=== PATIENT | female | born 1945 | race Caucasian/White ===

== ENCOUNTER 2016-11-26 09:26 | Outpatient (CLI) | payer MEDICARE, OTHER ==
[~2016-11-26] VITALS: Ht 167.6 cm; Wt 103.8 kg
--- NOTE | ~2016-11-26 | CATH ---
Cardiac Diagnostic Report Demographics Patient Name BETZAIDA Ochoa Gender Female Date of 1945 Age 70 year(s) Patient Number [id number] Date of Study 11/26/2016 Visit Number [id number] Room Number G63[address] [place] [id number] Ht 167.64 cm Wt 103.8 kg Referring Oumou Melida Linton MD Primary Physician Physician Performing Markeluguntla Secondary Physician Physician Temit[facility]ES [facility] Physician Temitope HERNANDES Interventional Physician Dry Cleaning Counter Clerk Physician Findings and Conclusions Diagnostic Findings and Conclusion Mild CAD 1 vessel. Ostial and Mid 20 % of LAD. Mild mid to distal LAD bridging. Diagnostic Recommendations Medical treatment. Ranexa 500 mg BID. No BB or CCB due to resting sinus bradycardia. Event monitor upon discharge given recent fall and syncope. Patient has been instructed to not lift anything more than 5 pounds for 1 week. I would like to thank Dr. Coello for the opportunity to participate in the care of Mrs. Gill . Procedure Description The patient was brought to the diagnostic cardiac catheterization-EP laboratory in the fasting, non-sedated state. Informed consent was obtained in the written and verbal form after the risks and benefits were explained. The patient had no further questions and agreed to proceed. The planned puncture-incision site(s) were shaved and prepped with ChloraPrep and draped in the usual sterile manner. Conscious sedation, supplemental oxygen, and pain control medications were delivered by a registered nurse under physician guidance. Surface ECG rhythm, blood pressure measurement, and pulse oximetry were monitored throughout the procedure. Arterial access. The access site was infiltrated with lidocaine. The vessel was entered with the Seldinger technique. A sheath was advanced into the vessel and used for catheter placement. Selective left coronary angiography. A catheter was advanced into the left coronary vessel ostium under Fluoroscopic guidance. Contrast was injected by hand. Images were obtained in multiple projections. Selective right coronary angiography. A catheter was advanced into the right coronary vessel ostium under fluoroscopic guidance. Contrast was injected by hand. Images were obtained in multiple projections. Left heart catheterization. A catheter was advanced across the aortic valve to the left ventricle under fluoroscopic guidance. Resting hemodynamics were obtained. Arterial artery hemostasis was achieved. The patient was transferred to a regular nursing floor via cart accompanied by a nurse. The patient left the laboratory in stable condition. Diagnostic Cath Status: Elective Procedure Procedure Type Diagnostic procedure:Angiography:, Coronary Angios w/LHC Indications: Chest pain, Shortness of breath, Syncope and Palpitations. The procedure was explained in detail to the patient. Risks, complications and alternative treatments were reviewed. Written consent was obtained. Medications Reviewed with Patient prior to Procedure. Angiographic Findings Dominance: Left Cardiac Arteries and Lesion Findings LMCA: Normal (0% Stenosis). LAD: Diag normal. Lesion on Prox LAD: Ostial.20% stenosis . Lesion on Mid LAD: Mid subsection.20% stenosis . Comments:Mild mid LAD bridging. LCx: Normal (0% Stenosis).OM normal. RCA: Normal (0% Stenosis).Small nondominant. Coronary Tree Procedure Data Procedure Date Date: 11/26/2016Start: 01:26 PMEnd: 01:49 PM Entry Locations - Retrograde Percutaneous access was performed through the Right Radial artery (Primary location). A 6 Fr sheath was inserted. Hemostasis was successfully obtained using Mechanical Compression. Entry Comments: ultrasound guidance used to access right radial artery.. Closure Comments: 14 ml's in Radial band placed by Liza Starr. Procedure Medications Order and Administration + + + + + !Time !Medication !Dosage !Route ! + + + + + !11/26/2016 01:19 PM !Versed !1 mg !I.V. ! + + + + + !11/26/2016 01:20 PM !Fentanyl !50 mcg !I.V. ! + + + + + !11/26/2016 01:23 PM !Oxygen !2 l/min !NC ! + + + + + !11/26/2016 01:36 PM !Heparin (ACC_3) !5000 units !I.V. bolus ! + + + + + !11/26/2016 01:37 PM !Fentanyl !25 mcg !I.V. ! + + + + + !11/26/2016 01:45 PM !Oxygen ! !NC ! + + + + + Devices Used - A5 FrCynthia ALMEIDA JR 4 Diag. Catheterwas used for:Right coronary angiography. - A5 Fr. BS JR 4 Diag. Catheterwas used for:LV Pressures. - A5 Fr. BS JL 3.5 Diag. Catheterwas used for:Left coronary angiography. Contrast Material - Isovue 89239 ml Fluoroscopy Time: Diagnostic: 3:48 minutes. Total: 3:48 minutes. Fluoroscopy Dose: Diagnostic: 547 mGy. Total: 547 mGy. Estimated Blood Loss: 10 ml. Medical History Performed Procedures and Imaging Results - No ACC stress or imaging studies were performed. History of Disease + + + + !Diagnosis !Date !Comments ! + + + + !Hypertension ! ! ! + + + + !Diabetes ! ! ! + + + + Allergies - Other:(Darvocet, Macrobid, Levaquin, Lisinopril). Risk Factors The patient risk factors include:treated hypercholesterolemia, treated hypertension, family history of premature CAD, orally-treated diabetes mellitus, last creatinine: 1 mg/dl, creatinine clearance: 87 ml/min and dyslipidemia. Admission Data Admission Date: 11/26/2016 Admission Time: 09:26 AM Admit Source: Other Insurance Payors: Medicare. Admission Medications + +------+------+ +---------+ + + !Medication !Dosage!Times !Last !Last !Administered !Comments ! ! ! !Per !Delivery !Delivery ! ! ! ! ! ! ! !Time ! ! ! + +------+------+ +---------+ + + !Statin (any)! ! !11/26/2016 !12:00 AM !Yes ! ! + +------+------+ +---------+ + + !ARB (any) ! ! !11/26/2016 !12:00 AM !Yes ! ! + +------+------+ +---------+ + + !Aspirin ! ! !11/26/2016 !12:00 AM !Yes ! ! !(any) ! ! ! ! ! ! ! + +------+------+ +---------+ + + !Nitrates (iv! ! ! ! ! ! ! !or buccal) ! ! ! ! ! ! ! + +------+------+ +---------+ + + Clinical Evaluation Leading to Procedure - The patient's CAD presentation was assessed as: Unstable angina. - The patient's anginal syndrome during the past two weeks was assessed as: Class III according to the [place] Cardi[employer] Classification System (CCS). Anti-anginal medications were prescribed during the past two weeks. The medication is: Long Acting Nitrates. - The patient has been in a state of heart failure within the past two weeks. - The patient's heart failure status was assessed as NYHA Class III, with CHF symptoms of BALLARD. Hemodynamics Condition: Rest O2 Consumption: Estimated: 186.79Heart Rate: 59 bpm Pressures (mmHg) +-----+ + !Site !Pressure ! +-----+ + !AO !137/69 (97) ! +-----+ + !LV !126/12 ,17 ! +-----+ + !LV !135/11 ,16 ! +-----+ + !AO !114/28 (80) ! +-----+ + !LV !138/11 ,16 ! +-----+ + Valve Gradients and Areas + +---------+---------+---------+ +---------+ + !Valve !Peak !Mean !Area !Index !Flow !Source ! + +---------+---------+---------+ +---------+ + !Aortic !23 !20 ! ! ! ! ! + +---------+---------+---------+ +---------+ + !Aortic !23 !20 ! ! ! ! ! + +---------+---------+---------+ +---------+ + Shunts Oxygen Values O2 Capacity 189.04 O2 Consumption 186.79 Signatures dtt: TEMITOPE LOPES dtd: 11/26/16 1326 Physician Self Edit
[~2016-11-26 09:26] MED LIST: ASPIRIN325 MG PO; ATIVAN 0.5MG0.5 MG PO; CELEXA40 MG PO; CPAP INH; DIOVAN160 MG PO; DRISDOL 5050000 UNIT PO; GLUCOPHAGE500 MG PO; HYDROCHLOROTH12.5 M1 PO; LEVOTHROID (SY50 MCG PO; PRAVACHOL40 MG PO; PRILOSEC20 MG PO; RYTHMOL150 MG PO
[2016-11-26] MEDS ORDERED: NITROGLYCERIN0.4 MG SL (10:22)
[2016-11-26 10:50] LABS: BASOPHIL % 0.5 %; EOSINOPHIL # 0.2 K/uL (0.0-0.5); EOSINOPHIL % 2.4 %; HEMOGLOBIN 13.9 g/dL (10.0-15.0); IMMATURE GRANULOCYTE % 0.3 %; LYMPHOCYTE # 2.2 K/uL (0.8-4.0); LYMPHOCYTE % 33.7 %; MCH 30.5 pg (27.0-34.0); MCHC 34.8 gm/dL (32.0-36.5); MCV 87.9 fl (83.0-98.0); MONOCYTE # 0.7 K/uL (0.0-1.0); MONOCYTE % 10.4 %; MPV 10.5 fl (9.4-12.4); NEUTROPHIL # (ANC) 3.5 K/uL (1.8-7.8); NEUTROPHIL % 52.7 %; NRBC % 0 /100WBC (0-0.00); PLATELET COUNT 247 K/uL (150-450); RBC 4.55 M/uL (3.50-5.50); RDW-CV 13.8 % (11.9-14.6); WBC 6.6 K/uL (4.0-11.0)
[2016-11-26 11:01] LABS: INR - (THERAPEUTIC) 0.99 (0.92-1.07); PROTIME 10.4 SECONDS (9.8-11.4); PTT 27 SECONDS (25-32)
[2016-11-26 11:10] LABS: ALBUMIN 3.5 gm/dL (3.5-5.0); ANION GAP 12.6 (10.0-19.0); CALCIUM 9.1 mg/dL (8.5-10.5); POTASSIUM 3.6 mMol/L (3.7-5.1); TOTAL BILIRUBIN 0.4 mg/dL (0.0-1.5)
[2016-11-26] MEDS ORDERED: RANEXA ER500 MG PO (15:35)
[2016-12-16] MEDS ORDERED: TYLENOL EXTRA500 MG PO (19:18)
[2016-12-16] MEDS ORDERED: CPAP (19:18)
[2016-12-17] MEDS ORDERED: IMDUR30 MG PO (09:32)
[2016-12-17] MEDS ORDERED: ATIVAN 0.5MG0.5 MG PO (09:33)
[2016-12-17] MEDS ORDERED: MOBIC7.5 MG PO (09:40)
== END 2016-11-26 17:32 | disposition disaster alternative care site (69) ==
LOC: GPCU 09:26 → GPOC 09:26
PROVIDERS: Internal Medicine Interventional Cardiology
PROC: 4A023N7 Measurement of Cardiac Sampling and Pressure, Left Heart, Percutaneous Approach (ICD-10-PCS; principal; 2016-11-26)
PROC: B216YZZ Fluoroscopy of Right and Left Heart using Other Contrast (ICD-10-PCS; 2016-11-26)
DX: I25.110 Atherosclerotic heart disease of native coronary artery with unstable angina pectoris (principal); E78.00 Pure hypercholesterolemia, unspecified; I10 Essential (primary) hypertension; E11.9 Type 2 diabetes mellitus without complications; E78.5 Hyperlipidemia, unspecified; R55 Syncope and collapse; R00.1 Bradycardia, unspecified; R94.31 Abnormal electrocardiogram [ECG] [EKG]; Z82.49 Family history of ischemic heart disease and other diseases of the circulatory system
CPT/HCPCS: C1894; J1644; J2001; J2250; J3010; J7030